=== PATIENT | male | born 1935 | race Caucasian/White ===

== ENCOUNTER → 2016-07-30 | Outpatient (CLI) | payer MEDICARE ==
[~2016-07-30] MED LIST: ASA CHILDREN'S81 MG PO; ATIVAN-DPS1 MG PO; COLACE-DPS100 MG PO; COZAAR100 MG PO; EFFEXOR XR DPS150 MG PO; HYDROCODONE 5MG/5 MG PO; LUTEIN-ZEAXANT1 EACH PO; MIRALAX PACKET17 GM PO
== END | disposition home or self-care (01) ==
LOC: RAD.S 09:58
DX: H49.23 Sixth [abducent] nerve palsy, bilateral (principal); G31.9 Degenerative disease of nervous system, unspecified